=== PATIENT | male | born 1975 | race African-American/Black ===

== ENCOUNTER 2020-10-31 02:15 | Emergency (ER) | payer SELFPAY ==
[~2020-10-31] VITALS: Ht 167.6 cm; Wt 68.0 kg
--- NOTE | 2020-10-31 03:55 | Emergency Room Report ---
History of Present Illness General Chief Complaint: Behavioral Complaint Source: Patient Present Illness HPI Patient is a 45-year-old male past medical history of psychiatric disorders including depression and schizophrenia on Zyprexa and Paxil who presents to the ER complaining of auditory hallucinations and suicidal ideation. Patient states that he tried to kill himself in the past by cutting himself. He states that he does not have a plan today but states that he feels suicidal. He denies any fever or chills. She denies any chest pain or shortness of breath. Patient is seen talking to himself. He avoids eye contact. Patient also admits to methamphetamine use he says last usage was several days ago. Allergies: Coded Allergies: KETOROLAC (Verified Allergy, Unknown, 10/31/20) COVID-19 Screening Contact w/high risk pt: No Experienced COVID-19 symptoms?: No COVID-19 Testing performed [employer]EN[employer] INST[employer]ER: No Patient History Reviewed Nursing Documentation: PMH: Agreed; PSxH: Agreed Nursing Documentation-PMH History Of Psychiatric Problem: Yes Review of Systems All Other Systems: negative except mentioned in HPI Physical Exam Vital Signs Date Time Temp Pulse Resp B/P (MAP) Pulse Ox O2 Delivery O2 Flow Rate FiO2 10/31/20 03:41 98.4 85 20 132/85 (101) 98 Sp02 EP Interpretation: reviewed, normal General Appearance: no apparent distress, alert, GCS 15, non-toxic, other - Disheveled Head: normocephalic, atraumatic Eyes: bilateral eye normal inspection, bilateral eye PERRL ENT: normal pharynx Neck: full range of motion, no meningismus Respiratory: no respiratory distress, no accessory muscle use, speaking full sentences Cardiovascular #1: regular rate, rhythm Gastrointestinal: non tender, soft, no guarding, no rebound Rectal: deferred Musculoskeletal: normal range of motion Psychiatric: other - Suicidal Skin: no rash Lymphatic: no adenopathy Medical Decision Making Diagnostic Impression: Primary Impression: Behavioral disorder Additional Impressions: Methamphetamine abuse Auditory hallucinations Suicidal thoughts ER Course Patient presents with suicidal thoughts but no definite plan. Patient's labs positive for methamphetamines. Otherwise no significant acute abnormalities. Patient has been medically cleared. Patient signed out to Dr. Alanis at 0600 pending possible psychiatric consultation or placement. Laboratory Tests Test 10/31/20 04:34 White Blood Count 7.5 K/UL (4.8-10.8) Red Blood Count 4.43 M/UL (4.70-6.10) L Hemoglobin 13.3 G/DL (14.2-18.0) L Hematocrit 40.3 % (42.0-52.0) L Mean Corpuscular Volume 91 FL (80-99) Mean Corpuscular Hemoglobin 30.0 PG (27.0-31.0) Mean Corpuscular Hemoglobin Concent 33.0 G/DL (32.0-36.0) Red Cell Distribution Width 13.2 % (11.6-14.8) Platelet Count 258 K/UL (150-450) Mean Platelet Volume 6.3 FL (6.5-10.1) L Neutrophils (%) (Auto) % (45.0-75.0) Lymphocytes (%) (Auto) % (20.0-45.0) Monocytes (%) (Auto) % (1.0-10.0) Eosinophils (%) (Auto) % (0.0-3.0) Basophils (%) (Auto) % (0.0-2.0) Urine Color Yellow Urine Appearance Clear Urine pH 6 (4.5-8.0) Urine Specific [place] 1.025 (1.005-1.035) Urine Protein Negative (NEGATIVE) Urine Glucose (UA) Negative (NEGATIVE) Urine Ketones Negative (NEGATIVE) Urine Blood 2+ (NEGATIVE) H Urine Nitrite Negative (NEGATIVE) Urine Bilirubin Negative (NEGATIVE) Urine Urobilinogen 1 MG/DL (0.0-1.0) H Urine Leukocyte Esterase Negative (NEGATIVE) Urine RBC 0-2 /HPF (0 - 0) H Urine WBC 0 /HPF (0 - 0) Urine Squamous Epithelial Cells None /LPF (NONE/OCC) Urine Bacteria None /HPF (NONE) Sodium Level 141 MMOL/L (136-145) Potassium Level 3.8 MMOL/L (3.5-5.1) Chloride Level 105 MMOL/L (98-107) Carbon Dioxide Level 30 MMOL/L (21-32) Anion Gap 6 mmol/L (5-15) Blood Urea Nitrogen 19 mg/dL (7-18) H Creatinine 1.0 MG/DL (0.55-1.30) Estimated Glomerular Filtration Rate > 60 mL/min (>60) Glucose Level 84 MG/DL (74-106) Calcium Level 8.8 MG/DL (8.5-10.1) Total Bilirubin Pending Aspartate Amino Transferase (AST) 30 U/L (15-37) Alanine Aminotransferase (ALT) 39 U/L (12-78) Alkaline Phosphatase 61 U/L (46-116) Total Protein 6.7 G/DL (6.4-8.2) Albumin 3.6 G/DL (3.4-5.0) Globulin 3.1 g/dL Albumin/Globulin Ratio 1.2 (1.0-2.7) Salicylates Level 1.1 ug/mL (2.8-20) L Urine Opiates Screen Negative (NEGATIVE) Acetaminophen Level < 2 MCG/ML (10-30) L Urine Barbiturates Screen Negative (NEGATIVE) Phencyclidine (PCP) Screen Negative (NEGATIVE) Urine Amphetamines Screen Positive (NEGATIVE) H Urine Benzodiazepines Screen Negative (NEGATIVE) Urine Cocaine Screen Negative (NEGATIVE) Urine Marijuana (THC) Screen Negative (NEGATIVE) Serum Alcohol < 3 mg/dL Last Vital Signs Date Time Temp Pulse Resp B/P (MAP) Pulse Ox O2 Delivery O2 Flow Rate FiO2 10/31/20 03:41 98.4 85 20 132/85 (101) 98 Signed Out To: Dr. Alanis at 6 AM Referrals: NOT CHOSEN IPA/,REFERRING (PCP) Additional Instructions: Please note that this report is being documented using [employer] technology. This can lead to erroneous entry secondary to incorrect interpretation by the dictating instrument. Desiree Neely M.D. Oct 31, 2020 03:55
--- NOTE | 2020-10-31 04:02 | NUR ---
ED Nurse Note: pt frustrated with his veins and not being able to draw blood. hates needles and doesnt want to try again. told , told him he needed it and pt got angry and confrontational. explained to pt we needed blood to medically clear him to send him to be mentally evaluated. pt calmed down and agreed. got blood and urine, sent to lab. line withdrawn immediately. offered sandwich and juice to pt. pt thankful. pt ate and is now resting comfortably on stretcher. will continue to monitor.
[2020-10-31 04:06] VITALS: BP 132/85
--- NOTE | 2020-10-31 04:12 | NUR ---
ED Nurse Note:pt comes into ED c/o suicidal ideations. pt denies a plan. pt states hes had these thoughts before and has been admitted for evaluation due to the same issue. pt allowed us to collect urine and blood. will send to lab. vs wnl. pt breathing without complications. will continue to monitor.
[2020-10-31 04:44] LABS: HEMATOCRIT 40.3 % (42.0-52.0); HEMOGLOBIN 13.3 G/DL (14.2-18.0); MEAN CORPUSCULAR VOLUME 91 FL (80-99); PLATELET COUNT 258 K/UL (150-450); RED BLOOD COUNT 4.43 M/UL (4.70-6.10); RED CELL DISTRIBUTION WIDTH 13.2 % (11.6-14.8); WHITE BLOOD COUNT 7.5 K/UL (4.8-10.8)
[2020-10-31 04:45] LABS: APPEARANCE,URINE CLEAR; BILIRUBIN, URINE NEGATIVE (NEGATIVE); GLUCOSE, URINE (UA) NEGATIVE (NEGATIVE); KETONES,URINE NEGATIVE (NEGATIVE); LEUKOCYTE ESTERASE ,URINE NEGATIVE (NEGATIVE); NITRITE,URINE NEGATIVE (NEGATIVE); PH,URINE 6 (4.5-8.0); PROTEIN,URINE NEGATIVE (NEGATIVE); UROBILINOGEN,URINE 1 MG/DL (0.0-1.0)
[2020-10-31 04:48] LABS: COLOR,URINE YELLOW
[2020-10-31 04:55] LABS: ANION GAP 6 mmol/L (5-15); BLOOD UREA NITROGEN 19 mg/dL (7-18); CALCIUM 8.8 MG/DL (8.5-10.1); CARBON DIOXIDE 30 MMOL/L (21-32); CHLORIDE 105 MMOL/L (98-107); POTASSIUM 3.8 MMOL/L (3.5-5.1); SODIUM 141 MMOL/L (136-145)
[2020-10-31 05:00] LABS: ALANINE AMINOTRANSFERASE 39 U/L (12-78); ALBUMIN 3.6 G/DL (3.4-5.0); ALBUMIN/GLOBULIN RATIO 1.2 (1.0-2.7); ALKALINE PHOSPHATASE 61 U/L (46-116); ASPARTATE AMINO TRANSFERASE 30 U/L (15-37)
[2020-10-31 05:13] LABS: BILIRUBIN,TOTAL 0.7 MG/DL (0.2-1.0)
[2020-10-31 05:24] VITALS: BP 128/87
[2020-10-31 06:05] VITALS: BP 127/82
--- NOTE | 2020-10-31 06:05 | NUR ---
ED Nurse Note: pt sleeping comfortably on stretcher. pt easily arousable to name. pt denies any pain, discomfort or auditory hallucinations at this moment. vs wnl. will continue to monitor. awaiting facility acceptance for transport
[2020-10-31] MEDS ORDERED: PARoxetine HCL 10mg tab ORAL STA (07:51)
[2020-10-31] MEDS ORDERED: PAXIL10 MG ORAL (07:55)
--- NOTE | 2020-10-31 08:23 | NUR ---
ED Nurse Note: Pt sitting in bed, eating sandwich and breakfast tray. He is calm and cooperative. Denies SI at this time. Safety precautions in place.
[2020-10-31 10:30] VITALS: BP 120/80
--- NOTE | 2020-10-31 10:30 | NUR ---
ED Nurse Note: Called [facility] social service for consult.
--- NOTE | 2020-10-31 10:50 | NUR ---
[employer]ANCE [employer] SCREW [employer]LE TAPPER NOTE SW met w/ pt and completed the psychosocial assessment. PT provided limited information, stating that "it is confidential". PT presents as A&O4x, somewhat uncooperative w/ this SW, and guarded. PT has been homeless for 2-3 years. PT reports he lost his ID and he is unsure if he receives any income. Pt stated "I don't know if I am getting one." Pt does not have any family/friend who provide support. PT did not disclose his whereabouts/preferred location. SW explained that since this hospital does not have free DMV ID form (only available at non-profit agencies), SW encouraged pt to ask the form from DMV or connect to homeless agencies like [facility] and [facility] for assistance. However, pt does not want to ask for help from homeless agencies. PT is refusing a homeless alf placement. PT also informed this SW that he is suicidal. This SW asked for specific suicidal plan and attempted to determine the urgency, pt declined to disclose/discuss. Pt reports hx of IP psychiatric admission but he does not share the diagnosis/outpatient F/U status/detail of his past/current psychiatric hx. UDS positive for amphetamine. PT admits meth abuse. However, pt does not consider IP/OP substance abuse rehab. PT does not appear to be motivated for substance abuse rehab. Pt declined counseling/tx intervention/resource on substance abuse. SW provided the community resource packet and the list of [place] [facility] for pt to review.
--- NOTE | 2020-10-31 11:03 | NUR ---
[facility] [place] [facility] [place] [facility] due to coved waitning for approval from state possibly from next week but it is not clear( cuong) intake
--- NOTE | 2020-10-31 11:30 | NUR ---
ED Nurse Note: Patient noted to be irritable and rude to nursing staff. Patient states, " you are all discriminating me bec im fucking black." Fuck you bitch!
--- NOTE | 2020-10-31 11:42 | NUR ---
ED Nurse Note: Patient was provided with sandwiches, juice and water. Patient asked for more food and juices.
[2020-10-31 11:46] VITALS: BP 134/76
--- NOTE | 2020-10-31 11:46 | NUR ---
ER DISCHARGE NOTE: Patient is cleared to be discharged per ERMD, pt is aox4, on room air, with stable vital signs. pt was given dc, prescription instructions and home referral resources, pt was able to refused to sign [place] and [place] papers, pt id band removed. pt is able to ambulate with steady gait. pt took all belongings.
== END 2020-10-31 11:46 | disposition home or self-care (01) ==
LOC: EMR 02:45
DX: F15.10 Other stimulant abuse, uncomplicated (principal); F91.9 Conduct disorder, unspecified; R45.851 Suicidal ideations; R44.0 Auditory hallucinations; Z88.8 Allergy status to other drugs, medicaments and biological substances; Z91.5 Personal history of self-harm
CPT/HCPCS: 36415; 80053; 80307; 81003; 85025; 99284; G0480